=== PATIENT | female | born 1930 | race Caucasian/White ===

== ENCOUNTER 2017-03-24 14:49 | Emergency (ER) | payer MEDICARE ==
[~2017-03-24] VITALS: Ht 160 cm; Wt 67.0 kg
[~2017-03-24 14:49] MED LIST: CALTTAB5 PO; CELE200C PO; CLON.5 PO; CLOR3.755 PO; GEMF600 PO; HYDR-3533 PO; MULT-135 PO; OMEP20TA PO; VITA400C59 CHEW; [UNRECOGNIZED DRUG - CODE] PO
[2017-03-24 14:51] VITALS: BP 229/102; TEMP 98.2; O2SAT 98
[2017-03-24 14:55] VITALS: BP 189/96; PULSE 89; RESP 16; TEMP 98.1; O2SAT 99
[2017-03-24] MEDS ORDERED: ENALAPRILAT 2.5 MG/2 ML VIAL IV PUSH ONE (15:15)
[2017-03-24] MEDS ORDERED: SODIUM CHLORIDE 0.9% FLUSH 10 ML FLUSH IV FLUSH PRN (15:15)
[2017-03-24] MEDS ORDERED: PRIL20CA9 PO (15:21)
[2017-03-24 15:37] VITALS: BP 162/70; PULSE 66; RESP 20; O2SAT 96
--- NOTE | 2017-03-24 15:38 | PD ---
HPI Chief Complaint: Hypertension Time Seen by Provider: 15:11 Travel History International Travel<30 days: No Contact w/Intl Traveler<30days: No Traveled to known affect area: No History of Present Illness HPI Patient is a 86-year-old female presents emergency department with complaint of hypertension. Patient states that she was seen at her pain management doctor's office today for consultation. She was noted to be hypertensive in the office. Looking back, patient states that she has been having some lightheadedness it associated with some blurry vision, palpitations over the course the last several weeks. She didn't think much of it until she noticed that her blood pressure was in the 200s systolic. She has not had any chest pain, shortness of breath. She denies any history of hypertension. 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) Tetanus Vaccination: < 5 Years Influenza Vaccination: Yes Past Surgical History Abdominal Surgery: Yes (APPENDECTOMY) Appendectomy: Yes Pacemaker: No Other Surgery: Yes Social History Alcohol Use: Yes (VERY RARELY) Tobacco Use: No Substance Use: No Allergies-Medications (Allergen,Severity, Reaction): Coded Allergies: Darvocet-N 100 (Unverified Adverse Reaction, Severe, KEEPS AWAKE, 03/24/17) Flagyl (Unverified Adverse Reaction, Severe, STOMACH ULCER, 03/24/17) Keflex (Unverified Adverse Reaction, Severe, ULCER, 03/24/17) Demerol (Unverified Adverse Reaction, Unknown, CAN'T SLEEP, 03/24/17) Percodan (Unverified Adverse Reaction, Unknown, CAN'T SLEEP, 03/24/17) Premarin (Verified Adverse Reaction, Unknown, 03/24/17) VAGINAL CREAM CAUSES BURNING Sulfa (Verified Adverse Reaction, Unknown, Dizziness, 03/24/17) Talwin (Verified Adverse Reaction, Unknown, 03/24/17) Reported Meds & Prescriptions Reported Meds & Active Scripts Active Reported Prilosec (Omeprazole) 20 Mg Cap 20 Mg PO DAILY Caltrate 600 (Calcium Carbonate) 1,500 Mg Tab 1 Tab PO BID Celebrex (Celecoxib) 200 Mg Cap 200 Mg PO DAILY Klonopin (Clonazepam) 0.5 Mg Tab 0.5 Mg PO BID Fish Oil Burp-Less 1200 mg ([place]-3 Fatty Acids) 1 Cap Cap 1 Cap PO DAILY Lopid (Gemfibrozil) 600 Mg Tab 600 Mg PO BIDAC Take 30 minutes prior to breakfast and dinner Multi Vitamin (Multiple Vitamin) 1 Tab Tab 1 Tab PO DAILY Omeprazole 20 Mg Tab 20 Mg PO BID Review of Systems Except as stated in HPI: all other systems reviewed are Neg Physical Exam Narrative GENERAL: Pleasant elderly female in no acute distress SKIN: Focused skin assessment warm/dry. HEAD: Normocephalic. EYES: No scleral icterus. No injection or drainage. ENT: Mucous membranes pink and moist. NECK: Supple CARDIOVASCULAR: Regular rate and rhythm. No murmur appreciated. Hypertensive RESPIRATORY: No accessory muscle use. Clear to auscultation. Breath sounds equal bilaterally. MUSCULOSKELETAL: No obvious deformities. No edema. NEUROLOGICAL: Awake and alert. Motor grossly within normal limits. Normal speech. PSYCHIATRIC: Appropriate mood and affect; insight and judgment normal. Data Data Last Documented VS Vital Signs Date Time Temp Pulse Resp B/P Pulse Ox O2 Delivery O2 Flow Rate FiO2 03/24/17 16:32 65 17 143/63 96 Room Air 03/24/17 14:55 98.1 Orders Basic Metabolic Panel (Bmp) (03/24/17 15:11) Complete Blood Count With Diff (03/24/17 15:11) Iv Access Insert/Monitor (03/24/17 15:11) Ecg Monitoring (03/24/17 15:11) Oximetry (03/24/17 15:11) Sodium Chloride 0.9% Flush (Ns Flush) (03/24/17 15:15) Electrocardiogram (03/24/17 15:11) Enalaprilat Inj (Vasotec Inj) (03/24/17 15:15) Labs Laboratory Tests Test 03/24/17 15:25 White Blood Count 5.8 TH/MM3 Red Blood Count 4.33 MIL/MM3 Hemoglobin 13.3 GM/DL Hematocrit 40.0 % Mean Corpuscular Volume 92.3 FL Mean Corpuscular Hemoglobin 30.7 PG Mean Corpuscular Hemoglobin 33.3 % Concent Red Cell Distribution Width 12.4 % Platelet Count 234 TH/MM3 Mean Platelet Volume 8.6 FL Neutrophils (%) (Auto) 53.7 % Lymphocytes (%) (Auto) 32.2 % Monocytes (%) (Auto) 8.0 % Eosinophils (%) (Auto) 5.2 % Basophils (%) (Auto) 0.9 % Neutrophils # (Auto) 3.1 TH/MM3 Lymphocytes # (Auto) 1.9 TH/MM3 Monocytes # (Auto) 0.5 TH/MM3 Eosinophils # (Auto) 0.3 TH/MM3 Basophils # (Auto) 0.1 TH/MM3 CBC Comment DIFF FINAL Differential Comment Sodium Level 141 MEQ/L Potassium Level 4.7 MEQ/L Chloride Level 111 MEQ/L Carbon Dioxide Level 19.9 MEQ/L Anion Gap 10 MEQ/L Blood Urea Nitrogen 23 MG/DL Creatinine 1.40 MG/DL Estimat Glomerular Filtration 35 ML/MIN Rate Random Glucose 93 MG/DL Calcium Level 9.5 MG/DL [facility] Medical Decision Making Medical Screen Exam Complete: Yes Emergency Medical Condition: Yes Medical Record Reviewed: Yes Differential Diagnosis 86-year-old female here with complaint of high blood pressure and associated lightheadedness/visual changes and palpitations over the course the last several weeks. Differential includes essential hypertension, accelerated hypertension, hypertensive emergency, dehydration, electrolyte abnormality, arrhythmia. Narrative Course Patient placed on monitor, IV established and blood obtained. Twelve-lead EKG shows sinus rhythm without notable ST or T-wave abnormalities and normal intervals. Patient was given 2.5 mg of Vasotec IV with improvement of her blood pressure into the 160s systolic. CBC, BMP notable for BUN 23, creatinine 1.40. Patient will be started on Norvasc and discharged home. Diagnosis Primary Impression: Hypertension Qualified Code: I10 - Essential hypertension Referrals: Primary Care Physician 3 days Additional Instructions: Norvasc as prescribed. This medication is free at [facility]. Follow-up with primary care provider for blood pressure recheck. Med/Other Pt SpecificInfo: Prescription(s) given Scripts Amlodipine 5 Mg Tab5 Mg PO DAILY #30 TAB Ref 0 Prov:Radha Hernandez MD 03/24/17 Disposition: 01 DISCHARGE HOME Condition: Stable Radha Hernandez MD March 24, 2017 15:38
[2017-03-24 15:51] VITALS: BP 155/67; PULSE 66; RESP 18; O2SAT 96
[2017-03-24 15:55] LABS: AUTOMATED NEUTROPHIL # 3.1 TH/MM3 (1.8-7.7); BASOPHIL # 0.1 TH/MM3 (0-0.2); BASOPHIL % 0.9 % (0.0-2.0); EOSINOPHIL # 0.3 TH/MM3 (0-0.4); EOSINOPHIL % 5.2 % (0.0-4.0); HEMO FLAGS DIFF FINAL; LYMPH % 32.2 % (9.0-44.0); LYMPHOCYTE # 1.9 TH/MM3 (1.0-4.8); MEAN CELL VOLUME 92.3 FL (80.0-100.0); MEAN CORPUSCULAR HEMOGLOBIN 30.7 PG (27.0-34.0); MEAN CORPUSCULAR HGB CONC 33.3 % (32.0-36.0); NEUT % 53.7 % (16.0-70.0); PLATELET COUNT 234 TH/MM3 (150-450); RED BLOOD COUNT 4.33 MIL/MM3 (4.00-5.30); RED CELL DISTRIBUTION WIDTH 12.4 % (11.6-17.2); WHITE BLOOD COUNT 5.8 TH/MM3 (4.0-11.0)
[2017-03-24 16:11] VITALS: BP 132/61; PULSE 65; RESP 17; O2SAT 95
[2017-03-24 16:32] VITALS: BP 143/63; PULSE 65; RESP 17; O2SAT 96
[2017-03-24 16:32] LABS: BICARBONATE 19.9 MEQ/L (21.0-32.0)
[2017-03-24 16:47] LABS: POTASSIUM 4.7 MEQ/L (3.5-5.1)
[2017-03-24] MEDS ORDERED: AMLO5TAB2 PO (16:58)
--- NOTE | 2017-03-24 19:53 | EKG ---
Date Performed: 03/24/2017 Time Performed: 15:35:24 PTAGE: 86 years EKG: Sinus rhythm NORMAL ECG PREVIOUS TRACING : 09/03/2015 10.14 Compared to prior tracing no significant change DOCTOR: Gayatri Guzman Interpretating Date/Time 03/24/2017 19:52:44
== END 2017-03-24 17:00 | disposition home or self-care (01) ==
LOC: NEPD 14:49
DX: I10 Essential (primary) hypertension (principal); R42 Dizziness and giddiness; R00.2 Palpitations; H53.8 Other visual disturbances
CPT/HCPCS: 80048; 85025; 93005; 96374